=== PATIENT | female | born 1995 | race American Indian/Alaskan Native ===

== ENCOUNTER 2017-04-09 07:08 | Inpatient (IN) | payer MEDICAID ==
[2017-04-09] MEDS ORDERED: PITOCin/NS 20 UNIT/1000ML DRIP 20,000 MILLIUNITS/1,000 ML BAG IV ONE (08:14)
[2017-04-09] MEDS ORDERED: LACTATED RINGERS 1,000 ML ONE (08:14)
[2017-04-09] MEDS ORDERED: POLYCILLIN/NS 2 GM/100 ML 2 GM/100 ML BAG IV ONE ×2 (08:15→09:30)
--- NOTE | 2017-04-09 08:35 | History and Physical Report ---
History of Present Illness Date of examination: 04/09/17 Date of admission: 04/09/17 07:37 Chief complaint: C/O active labor History of present illness: 21 y/o now 37.1 weeks in active labor. care at [facility] assembly hand since 11 weeks gestation. Hx of Gestational diabetes, on diet. GBS negative. No HIV done will order rapid HIV test. 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 Family/Genetic History: heart disease Social history: no significant social history - Obstetrical History Expected Date of Delivery: 04/29/17 Actual Gestation: 37 Week(s) 1 Day(s) : 3 Para: 2 Hx # Term Pregnancies: 1 Number of Pregnancies: 1 Number of Living Children: 2 Medications and Allergies Allergies Allergy/AdvReac Type Severity Reaction Status Date / Time adhesive tape Allergy Rash Unverified 05/28/15 09:57 latex Allergy Rash Unverified 05/28/15 09:57 Latex, Natural Rubber AdvReac Itching Verified 04/26/15 11:54 Home Medications Medication Instructions Recorded Confirmed Last Taken Type HYDROcodone/APAP 5-325 [[place] 1 each PO Q6HR PRN #20 tablet 04/26/15 Unknown Rx 5-325 mg TAB] Ibuprofen [Motrin 800 MG tab] 800 mg PO TID PRN #30 tablet 04/26/15 Unknown Rx Fluconazole [Diflucan TAB] 150 mg PO QDAY #2 tablet 08/29/15 Unknown Rx Active Meds: Active Medications Ephedrine Sulfate (Ephedrine Sulfate) 10 mg IV Q2M PRN PRN Reason: Hypotension Stop: 04/09/17 08:22 Fentanyl (Sublimaze) 100 mcg IV Q2H PRN PRN Reason: Labor Pain Ampicillin Sodium (Polycillin/Ns 1 Gm/50 Ml) 1 gm in 50 mls @ 100 mls/hr IV Q4HR CALIN PRN Reason: Protocol Ampicillin Sodium (Polycillin/Ns 2 Gm/100 Ml) 2 gm in 100 mls @ 100 mls/hr IV ONCE ONE PRN Reason: Protocol Stop: 04/09/17 09:16 Lactated Ringer's (Lactated Ringers) 1,000 mls @ 125 mls/hr IV DIRECT CLAIN Oxytocin/Sodium Chloride (Pitocin/Ns 20 Unit/1000ml Drip) 20 units in 1,000 mls @ 125 mls/hr IV DIRECT CALIN Oxytocin/Sodium Chloride (Pitocin/Ns 30 Unit/500ml) 30 units in 500 mls @ 1 mls /hr IV TITR CALIN; 1 MILLIUNITS/MIN PRN Reason: Protocol Oxytocin/Sodium Chloride (Pitocin/Ns 30 Unit/500ml) 30 units in 500 mls @ 2 mls /hr IV TITR CALIN PRN Reason: Protocol Lidocaine (Xylocaine 2%) 20 ml INFILTRATI ONCE ONE Stop: 04/09/17 08:18 Mineral Oil (Mineral Oil) 30 ml PO QHS PRN PRN Reason: Constipation Terbutaline Sulfate (Brethine) 0.25 mg SUB-Q ONCE PRN PRN Reason: Hyperstimulation/Hypertonicity Stop: 04/09/17 08:18 Terbutaline Sulfate (Brethine) 0.25 mg IVP ONCE PRN PRN Reason: Hyperstimulation/Hypertonicity Stop: 04/09/17 08:18 Review of Systems All systems: negative - Vital Signs Vital signs: Vital Signs Pulse BP 67 128/73 04/09/17 07:28 04/09/17 07:28 Temp Pulse Resp BP Pulse Ox 67 128/73 04/09/17 07:28 04/09/17 07:28 - Physical Exam Breasts: Positive: deferred Cardiovascular: Regular rate Abdomen: Positive: normal appearance Vagina: Positive: normal moisture Uterus: Positive: enlarged Anus/Rectum: Positive: normal perianal skin Extremities: Positive: normal Deep Tendon Reflex Grade: Normal +2 - Obstetrical FHR: category 1 Uterine Contraction Monitor Mode: External Cervical Dilatation: 8 (intact) Cervical Effacement Percentage: 80 station: -1 Uterine Contraction Pattern: Regular Uterine Contraction Intensity: Moderate Results All other labs normal. Assessment and Plan A: Active labor at 37 weeks P: Expect
[2017-04-09 08:53] LABS: Hematocrit 39.7 % (30.3-42.9); Hemoglobin 12.7 gm/dl (10.1-14.3); Mean Corpuscular HGB Conc 32 % (30-34); Mean Corpuscular Volume 75 fl (79-97); Red Blood Count 5.26 M/mm3 (3.65-5.03); Red Cell Distribution Width 16.4 % (13.2-15.2); White Blood Count 8.4 K/mm3 (4.5-11.0)
[2017-04-09] MEDS ORDERED: PITOCin/NS 30 UNIT/500ML 30 UNITS/500 ML BAG IV SCH ×2 (09:00)
[2017-04-09] MEDS ORDERED: PITOCin/NS 20 UNIT/1000ML DRIP 20 UNITS/1,000 ML BAG IV SCH (09:00)
[2017-04-09] MEDS ORDERED: LACTATED RINGERS 1,000 ML IV SCH (09:00)
[2017-04-09 09:07] LABS: Mean Corpuscular Hemoglobin 24 pg (28-32)
[2017-04-09] MEDS ORDERED: ePHEDrine SULFATE IV PRN (09:30)
[2017-04-09] MEDS ORDERED: SUBLIMAZE IV PRN (09:30)
[2017-04-09] MEDS ORDERED: BRETHINE SUB-Q PRN (09:30)
[2017-04-09 09:33] LABS: Mean Platelet Volume 11.5 fl (6-12); Platelet Count 190 K/mm3 (140-440)
[2017-04-09] MEDS ORDERED: XYLOCAINE 2% INFILTRATI ONE (10:00)
[2017-04-09] MEDS ORDERED: MINERAL OIL PO PRN (10:00)
[2017-04-09] MEDS ORDERED: BRETHINE IVP PRN (10:00)
[2017-04-09] MEDS ORDERED: NORCO 5/325 PO PRN (10:30)
[2017-04-09] MEDS ORDERED: LANSINOH TP PRN (10:30)
[2017-04-09] MEDS ORDERED: BENADRYL PO PRN (10:30)
[2017-04-09] MEDS ORDERED: TYLENOL PO PRN (10:30)
[2017-04-09] MEDS ORDERED: PHENERGAN PO PRN (10:30)
--- NOTE | 2017-04-09 10:36 | Procedure Note ---
OB Delivery Note - Delivery Date of Delivery: 04/09/17 Surgeon: RITA GRIMES Estimated blood loss: <100cc - Vaginal Delivery presentation: vertex Delivery position: OA Intrapartum events: none Delivery induction: none Delivery augmentation: rupture of membranes Delivery monitor: external FHT, external uterine Route of delivery: Delivery placenta: spontaneous Delivery cord: 3 umbilical vessels Episiotomy: none Delivery laceration: none Anesthesia: intravenous Delivery comments: of a viable male 5# 10 on 04/09/2017 @ 1017 over intact perineum. 9/ 9. PLacenta delivered 3VCI. Mother and baby doing well. - Infant A at 1 minute: 9 at 5 minutes: 9 Gender: Male (5# 10 oz)
[2017-04-09] MEDS ORDERED: SODIUM CHLORIDE FLUSH SYRINGE 10 ML IV PRN (11:00)
[2017-04-09 11:40] LABS: HIV-1 Antigen p24 Non React (Non React); HIVR-1/2 Ab Non React (Non React)
[2017-04-09] MEDS ORDERED: POLYCILLIN/NS 1 GM/50 ML 1 GM/50 ML BAG IV SCH (12:23)
[2017-04-09] MEDS: MOTRIN PO SCH ×2 (17:36→23:53)
[2017-04-10 00:18] LABS: Hematocrit 34.7 % (30.3-42.9); Hemoglobin 11.2 gm/dl (10.1-14.3)
[2017-04-10] MEDS: MOTRIN PO SCH ×2 (05:32→13:17)
--- NOTE | 2017-04-10 09:24 | Progress Note ---
Assessment and Plan A: PPD 1 VSS P: Routine care D/C today Plan is for BTL Subjective - Subjective Date of service: 04/10/17 Principal diagnosis: PPD1 Interval history: 21 yo @ 37.1 delivered on 04/09/2017 @ 1017. GDM diet controlled. GBS negative Patient reports: appetite normal, voiding normally, pain well controlled, ambulating normally : doing well Objective - Vital Signs Latest vital signs: Vital Signs Temp Pulse Pulse Resp BP BP 04/10/17 08:54 98 F 88 20 110/67 04/10/17 05:32 18 04/10/17 01:19 98.5 F 81 20 101/55 04/09/17 23:53 18 04/09/17 20:00 97.7 F 76 18 123/75 04/09/17 17:18 98.1 F 80 16 123/69 04/09/17 14:54 20 04/09/17 12:00 98.4 F 66 18 123/17 04/09/17 11:30 97.5 F L 64 20 130/84 04/09/17 11:09 60 125/87 04/09/17 10:33 67 124/80 04/09/17 10:27 67 126/78 04/09/17 10:03 71 149/79 04/09/17 09:48 70 139/87 04/09/17 09:33 59 L 121/79 Intake and Output 04/09/17 04/10/17 04/10/17 22:59 06:59 14:59 Intake Total 240 360 240 Output Total 600 Balance -360 360 240 Intake: Oral 240 240 Intake, Free Water 360 Output: Urine 600 Void 600 Other: Total, Intake Amount 240 240 Total, Output Amount 600 # Voids Void 1 1 - Exam Cardiovascular: Present: Regular rate Lungs: Present: Normal air movement Vulva: both: normal (scant lochia) Uterus: Present: fundal height below umbilicus Deep Tendon Reflex Grade: Normal +2 Incision: Present: normal - Allied health notes Allied health notes reviewed: nursing
--- NOTE | 2017-04-10 09:26 | Discharge Summary ---
Providers - Providers Date of Admission: 04/09/17 07:37 Date of discharge: 04/10/17 Attending physician: JOSÉ LUIS SPENCE MD Primary care physician: JOSÉ LUIS SPENCE MD Hospitalization Reason for admission: active labor Delivery: Laceration: none Other procedures: none complications: none Discharge diagnosis: IUP at term delivered baby: male Hospital course: uneventful Condition at discharge: Good Disposition: DC-01 TO HOME OR SELFCARE Plan - Provider Discharge Summary Activity: routine, no sex for 6 weeks, no heavy lifting 4 weeks, no strenuous exercise Diet: routine Instructions: routine Additional instructions: [] Smoking cessation referral if applicable(refer to patient education folder for contact #) [] Refer to [facility] Booklet Call your doctor immediately for: * Fever > 100.5 * Heavy vaginal bleeding ( >1 pad per hour) * Severe persistent headache * Shortness of breath * Reddened, hot, painful area to leg or breast * Drainage or odor from incision. * Keep incision clean and dry at all times and follow doctor's instructions regarding bathing/showering - Follow up plan Follow up: [facility] [Provider Group] - 6 Weeks
[2017-04-10 18:17] VITALS: BP 125/76
== END 2017-04-10 18:00 | disposition home or self-care (01) | DRG 775 ==
LOC: TRG 07:08 → LD 07:37 → OB 11:47
PROVIDERS: ADMIT Obstetrics & Gynecology; ATTEND Obstetrics & Gynecology
PROC: 10E0XZZ Delivery of Products of Conception, External Approach (ICD-10-PCS; principal; 2017-04-09)
DX: O24.420 Gestational diabetes mellitus in childbirth, diet controlled (principal); O99.62 Diseases of the digestive system complicating childbirth; K21.9 Gastro-esophageal reflux disease without esophagitis; Z37.0 Single live birth; Z3A.37 37 weeks gestation of pregnancy; Z91.048 Other nonmedicinal substance allergy status; Z91.040 Latex allergy status
CPT/HCPCS: 36415; 85014; 85018; 85027; 86850; 86900; 86901; 87806; 99211; A6250; G0463; J0290; J2590; J3010; J7120

== ENCOUNTER 2017-08-31 21:18 | Emergency (ER) | payer MEDICAID ==
[2017-08-31 21:49] LABS: Basophils % (Auto) 0.9 % (0.0-1.8); Eosinophils % (Auto) 4.8 % (0.0-4.3); Hematocrit 40.3 % (30.3-42.9); Hemoglobin 13.2 gm/dl (10.1-14.3); Mean Corpuscular HGB Conc 33 % (30-34); Mean Corpuscular Hemoglobin 27 pg (28-32); Mean Corpuscular Volume 82 fl (79-97); Platelet Count 224 K/mm3 (140-440); Red Blood Count 4.93 M/mm3 (3.65-5.03); Red Cell Distribution Width 14.6 % (13.2-15.2)
[2017-08-31 22:14] LABS: Anion Gap 17 mmol/L; BUN/Creatinine Ratio 17; Blood Urea Nitrogen 10 mg/dL (7-17); Carbon Dioxide 25 mmol/L (22-30); Chloride 103.6 mmol/L (98-107); Glucose 87 mg/dL (65-100); Potassium 3.6 mmol/L (3.6-5.0); Sodium 142 mmol/L (137-145)
[2017-09-01 00:24] LABS: Bilirubin,Urine NEG (Negative); Blood,Urine LG (Negative); Ketones,Urine NEG (Negative); Leukocyte Esterase,Urine TR (Negative); Mucus,Urine 2+ /HPF; Nitrite,Urine NEG (Negative)
[2017-09-01 00:32] LABS: RBC,Urine > 182.0 /HPF (0.0-6.0)
--- NOTE | 2017-09-01 00:58 | XRay Report ---
FINAL REPORT PROCEDURE: XR CHEST ROUTINE 2V TECHNIQUE: PA and lateral chest radiographs were obtained. CPT 15690 HISTORY: Shortness of breath COMPARISON: No prior studies are available for comparison. FINDINGS: Heart: Normal. Mediastinum/Vessels: Normal. Lungs/Pleural space: Normal. Bony thorax: No acute osseous abnormality. Other: IMPRESSION: Negative examination.
--- NOTE | 2017-09-01 01:41 | Emergency Department Report ---
HPI - General Chief Complaint: Upper Respiratory Infection Time Seen by Provider: 09/01/17 00:50 - HPI HPI: Patient is a 21-year-old female presents to ED complaining of cough and congestion 3 days. Patient states she started having this intermittent yellowish productive cough that started 3 days ago. Patient states to more she coughs the prolonged coughing makes her chest hurts when coughing. She denies being on any medications. Or taking any medications currently. Patient denies fevers/chills/nausea/vomiting/chest pain/shortness of breath/ dizziness or headache ED Past Medical Hx - Past Medical History Hx Hypertension: No Hx CVA: No Hx Heart Attack/AMI: No Hx Congestive Heart Failure: No Hx Diabetes: No Hx Deep Vein Thrombosis: No Hx Pulmonary Embolism: No Hx GERD: Yes Hx Liver Disease: No Hx Renal Disease: No Hx Sickle Cell Disease: No Hx Arthritis: No Hx Headaches / Migraines: Yes Hx Seizures: No Hx Kidney Stones: No Hx Psychiatric Treatment: No Hx Asthma: Yes Hx COPD: No Hx Tuberculosis: No Hx Dementia: No Hx HIV: No Additional medical history: pneumonia - Surgical History Hx Coronary Stent: No Hx Open Heart Surgery: No Hx Pacemaker: No Hx Internal Defibrillator: No Hx Cholecystectomy: No Hx Appendectomy: No Hx Breast Surgery: No Additional Surgical History: OVARIAN CYST REMONAL - Social History Smoking Status: Never Smoker Substance Use Type: None - Medications Home Medications: Home Medications Medication Instructions Recorded Confirmed Last Taken Type ALBUTEROL Inhaler [ProAir HFA 1 puff IH PRN #1 pump 09/01/17 Unknown Rx Inhaler] Ciprofloxacin HCl [Ciprofloxacin 500 mg PO Q12HR #14 tab 09/01/17 Unknown Rx TAB] guaiFENesin [Robitussin] 200 mg PO Q6HR #20 tablet 09/01/17 Unknown Rx ED Review of Systems ROS: Stated complaint: CP/SOB Other details as noted in HPI Constitutional: denies: chills, fever Eyes: denies: eye pain, eye discharge, vision change ENT: congestion. denies: ear pain, throat pain Respiratory: cough. denies: shortness of breath, wheezing Cardiovascular: denies: chest pain, palpitations Endocrine: no symptoms reported Gastrointestinal: denies: abdominal pain, nausea, vomiting, diarrhea, constipation, hematemesis Genitourinary: denies: urgency, dysuria, discharge Musculoskeletal: denies: back pain, joint swelling, arthralgia Skin: denies: rash, lesions Neurological: denies: headache, weakness, paresthesias Psychiatric: denies: anxiety, depression Hematological/Lymphatic: denies: easy bleeding, easy bruising Physical Exam - Physical Exam Vital Signs: Vital Signs 08/31/17 21:23 Temperature 98.8 F Pulse Rate 85 Respiratory 18 Rate Blood Pressure 114/79 O2 Sat by Pulse 99 Oximetry Physical Exam: GENERAL: Alert and oriented x3, no apparent distress, Normal Gait, atraumatic. HEAD: Head is normocephalic and a-traumatic. EYES: Extra ocular muscles are intact. Pupils are equal, round, and reactive to light and accommodation. EARS: symetrical, atraumatic, non tender, ear canal clear and moderate cerumen, tympanic membrance non inflamed. gross auditory nml bilaterally. NOSE: Nose symetrical, Nontender,Nares appeared normal. MOUTH:Mouth is well hydrated and without lesions. Tonsils nonerythematous or swollen, Uvula midline, Tongue not elevated. Mucous membranes are moist. Posterior pharynx clear, no exudate or lesions. Patent airways. NECK: Supple. Non edematous, No lymphadenopathy or thyromegaly. LUNGS: Symetrical with respiration, No wheezing, no rales or crackles, CTAB. HEART: S1, S2 present, regular rate and rhythm without murmur, no rubs, no gallops. Non tender to palpation. BACK: Full range of motion, no spinal tenderness, nontender to palpation. SKIN: Warm and dry, No lesions, No ulceration or induration present. ED Course Vital Signs 08/31/17 21:23 Temperature 98.8 F Pulse Rate 85 Respiratory 18 Rate Blood Pressure 114/79 O2 Sat by Pulse 99 Oximetry ED Medical Decision Making - Lab Data Result diagrams: 08/31/17 21:33 08/31/17 21:33 Laboratory Last Values WBC 5.0 K/mm3 (4.5-11.0) 08/31/17 21:33 RBC 4.93 M/mm3 (3.65-5.03) 08/31/17 21:33 Hgb 13.2 gm/dl (10.1-14.3) 08/31/17 21:33 Hct 40.3 % (30.3-42.9) 08/31/17 21:33 MCV 82 fl (79-97) 08/31/17 21:33 MCH 27 pg (28-32) L 08/31/17 21:33 MCHC 33 % (30-34) 08/31/17 21:33 RDW 14.6 % (13.2-15.2) 08/31/17 21:33 Plt Count 224 K/mm3 (140-440) 08/31/17 21:33 Lymph % (Auto) 45.4 % (13.4-35.0) H 08/31/17 21:33 [place] % (Auto) 9.7 % (0.0-7.3) H 08/31/17 21:33 Eos % (Auto) 4.8 % (0.0-4.3) H 08/31/17 21:33 Baso % (Auto) 0.9 % (0.0-1.8) 08/31/17 21:33 Lymph # 2.3 K/mm3 (1.2-5.4) 08/31/17 21:33 [place] # 0.5 K/mm3 (0.0-0.8) 08/31/17 21:33 Eos # 0.2 K/mm3 (0.0-0.4) 08/31/17 21:33 Baso # 0.0 K/mm3 (0.0-0.1) 08/31/17 21:33 Seg Neutrophils % 39.2 % (40.0-70.0) L 08/31/17 21:33 Seg Neutrophils # 2.0 K/mm3 (1.8-7.7) 08/31/17 21:33 Sodium 142 mmol/L (137-145) 08/31/17 21:33 Potassium 3.6 mmol/L (3.6-5.0) 08/31/17 21:33 Chloride 103.6 mmol/L (98-107) 08/31/17 21:33 Carbon Dioxide 25 mmol/L (22-30) 08/31/17 21:33 Anion Gap 17 mmol/L 08/31/17 21:33 BUN 10 mg/dL (7-17) 08/31/17 21:33 Creatinine 0.6 mg/dL (0.7-1.2) L 08/31/17 21:33 Estimated GFR > 60 ml/min 08/31/17 21:33 BUN/Creatinine Ratio 17 % 08/31/17 21:33 Glucose 87 mg/dL (65-100) 08/31/17 21:33 Calcium 9.0 mg/dL (8.4-10.2) 08/31/17 21:33 Troponin T < 0.010 ng/mL (0.00-0.029) 08/31/17 21:33 Urine Color Yellow (Yellow) 08/31/17 23:32 Urine Turbidity Clear (Clear) 08/31/17 23:32 Urine pH 5.0 (5.0-7.0) 08/31/17 23:32 Ur Specific [place] 1.027 (1.003-1.030) 08/31/17 23: Urine Protein 30 mg/dl mg/dL (Negative) 08/31/17 23:32 Urine Glucose (UA) Neg mg/dL (Negative) 08/31/17 23:32 Urine Ketones Neg mg/dL (Negative) 08/31/17 23:32 Urine Blood Lg (Negative) 08/31/17 23:32 Urine Nitrite Neg (Negative) 08/31/17 23:32 Urine Bilirubin Neg (Negative) 08/31/17 23:32 Urine Urobilinogen 2.0 mg/dL (<2.0) 08/31/17 23:32 Ur Leukocyte Esterase Tr (Negative) 08/31/17 23:32 Urine WBC (Auto) 12.0 /HPF (0.0-6.0) H 08/31/17 23:32 Urine RBC (Auto) > 182.0 /HPF (0.0-6.0) 08/31/17 23:32 U Epithel Cells (Auto) 14.0 /HPF (0-13.0) H 08/31/17 23:32 Calcium Oxalate Crystal 1+ 08/31/17 23:32 Urine Mucus 2+ /HPF 08/31/17 23:32 Urine HCG, Qual Negative (Negative) 08/31/17 23:32 - EKG Data Interpretation: normal EKG - Radiology Data Radiology results: image reviewed interpreted by me: No signs of acute pulmonary disease. - Medical Decision Making 21-year-old female presents with bronchitis. Chest x-ray, CBC, CMP, urinalysis and tests already. Labs within normal limits. Urinalysis positive for some trace leukocytes, white blood cells and calcium oxalate. This urine results of this suggestive of mild UTI and previous kidney stone. I discussed his findings with the patient. I discussed the patient to follow up with primary care physician. I discussed the patient did take medication as prescribed as needed for cough Patient's vital signs are stable she is in no acute or respiratory distress. She is resting comfortably in the room. Patient has no neuro deficits and states she will follow instructions as given. Critical care attestation.: If time is entered above; I have spent that time in minutes in the direct care of this critically ill patient, excluding procedure time. ED Disposition Clinical Impression: Bronchitis, Cold, Cystitis Disposition: - TO HOME OR SELFCARE Is pt being admited?: No Does the pt Need Aspirin: No Condition: Stable Instructions: Chronic Bronchitis (ED), Urinary Tract Infection in Women (ED), Upper Respiratory Infection (ED) Additional Instructions: If you have any worsening symptoms this return to ED Follow-up with primary care doctor. Prescriptions: ALBUTEROL Inhaler [ProAir HFA Inhaler] 1 puff IH PRN #1 pump Ciprofloxacin HCl [Ciprofloxacin TAB] 500 mg PO Q12HR #14 tab guaiFENesin [Robitussin] 200 mg PO Q6HR #20 tablet Referrals: PRIMARY CARE, [Primary Care Provider] - 3-5 Days [facility] [Outside] - 3-5 Days [facility] [Outside] - 3-5 Days Forms: Work/School Release Form(ED) Time of Disposition: 01:50
[2017-09-01 02:12] VITALS: BP 119/72
== END 2017-09-01 02:12 | disposition home or self-care (01) ==
LOC: ED 21:18
DX: J40 Bronchitis, not specified as acute or chronic (principal); N30.90 Cystitis, unspecified without hematuria; J00 Acute nasopharyngitis [common cold]; K21.9 Gastro-esophageal reflux disease without esophagitis; G43.909 Migraine, unspecified, not intractable, without status migrainosus; J45.909 Unspecified asthma, uncomplicated
CPT/HCPCS: 36415; 71020; 80048; 81001; 81025; 84484; 85025; 93005; 93010

== ENCOUNTER 2018-07-22 09:53 | Inpatient (IN) | payer MEDICAID ==
[2018-07-22] MEDS ORDERED: NARCAN 0.4 MG/1 ML IV PRN (11:28)
[2018-07-22] MEDS ORDERED: SUBLIMAZE IV PRN (11:28)
[2018-07-22] MEDS ORDERED: ZOFRAN IV PRN (11:28)
[2018-07-22] MEDS ORDERED: BRETHINE IVP PRN (11:28)
[2018-07-22] MEDS ORDERED: XYLOCAINE 2% INFILTRATI ONE (11:28)
[2018-07-22] MEDS ORDERED: BRETHINE SUB-Q PRN (11:28)
[2018-07-22] MEDS ORDERED: MINERAL OIL PO PRN (11:28)
--- NOTE | 2018-07-22 11:35 | History and Physical Report ---
History of Present Illness Date of examination: 07/22/18 Date of admission: 07/22/18 11:20 Chief complaint: Intense Labor Pains History of present illness: Early entry to care; course complicated by GDM A1, co-managed with [facility]. Past History Past Medical History: diabetes (GDM a1) Past Surgical History: DEV TECHNICAL MGR/uterine surgery (Diagnostic Lap: 2014), other ( Esophagogastroduodenoscopy) DEV TECHNICAL MGR History: herpes Family/Genetic History: heart disease (father ) - Obstetrical History Expected Date of Delivery: 08/12/18 Actual Gestation: 37 Week(s) 0 Day(s) : 4 Para: 3 Hx # Term Pregnancies: 2 Number of Pregnancies: 1 Number of Living Children: 3 #1 Infant Gender: Male year: 2,010 Birthweight: 2.126 kg Method of Delivery: Vaginal Gestational age at delivery: 36 Complications: other (Induced for preeclampsia) #2 Gender: Male year: 2,012 Birthweight: 2.722 kg Method of Delivery: Vaginal Gestational age at delivery: 38 #3 Gender: Male year: 2,017 Birthweight: 2.495 kg Method of Delivery: Vaginal Gestational age at delivery: 37 Complications: other (GDM A1) Medications and Allergies Allergies Allergy/AdvReac Type Severity Reaction Status Date / Time adhesive tape Allergy Rash Unverified 05/28/15 09:57 latex Allergy Rash Unverified 05/28/15 09:57 Latex, Natural Rubber AdvReac Itching Verified 04/26/15 11:54 Home Medications Medication Instructions Recorded Confirmed Last Taken Type ALBUTEROL Inhaler (OR & NICU) 1 puff IH PRN #1 pump 09/01/17 Unknown Rx [ProAir HFA Inhaler] Ciprofloxacin HCl [Ciprofloxacin 500 mg PO Q12HR #14 tab 09/01/17 Unknown Rx TAB] guaiFENesin [Robitussin] 200 mg PO Q6HR #20 tablet 09/01/17 Unknown Rx Review of Systems All systems: negative - Vital Signs Vital signs: Vital Signs Pulse BP Pulse Ox 92 H 132/83 98 07/22/18 10:31 07/22/18 10:31 07/22/18 10:31 Temp Pulse Resp BP Pulse Ox 97 H 132/83 100 07/22/18 11:28 07/22/18 10:31 07/22/18 11:28 - Physical Exam Breasts: Positive: normal Cardiovascular: Regular rate Lungs: Positive: Clear to auscultation, Normal air movement Abdomen: Positive: normal appearance, soft, normal bowel sounds Genitourinary (Female): Positive: normal external genitalia, normal perenium Anus/Rectum: Positive: normal perianal skin, heme negative Extremities: Positive: normal - Obstetrical FHR: category 1 Uterine Contraction Monitor Mode: External Cervical Dilatation: 9 (AROM of a moderate amount of clear fluid) Cervical Effacement Percentage: 100 station: 0 Uterine Contraction Pattern: Regular Uterine Tone Measurement Phase: Resting Uterine Contraction Intensity: Strong/Firm Results All other labs normal. Assessment and Plan A: IUP @ 37 Weeks Category I Tracing Active labor GDM A1 GBS Negative P: Admit to L&D per Routine Orders Anticipate
[2018-07-22] MEDS ORDERED: PHENERGAN PR PRN (11:56)
[2018-07-22] MEDS ORDERED: DULCOLAX PR PRN (11:56)
[2018-07-22] MEDS ORDERED: NORCO 5/325 PO PRN (11:56)
[2018-07-22] MEDS ORDERED: BENADRYL PO PRN (11:56)
[2018-07-22] MEDS ORDERED: MILK OF MAGNESIA PO PRN (11:56)
[2018-07-22] MEDS ORDERED: LACTATED RINGERS 1,000 ML IV SCH (12:00)
[2018-07-22] MEDS ORDERED: SODIUM CHLORIDE FLUSH SYRINGE 10 ML IV NR (12:00)
[2018-07-22] MEDS ORDERED: PITOCin/NS 20 UNIT/1000ML DRIP 20 UNITS/1,000 ML BAG IV SCH (12:00)
--- NOTE | 2018-07-22 12:07 | Procedure Note ---
OB Delivery Note - Delivery Date of Delivery: 07/22/18 (1144) Surgeon: LILIBETH ROSA Estimated blood loss: 200cc - Vaginal Delivery presentation: vertex Delivery position: OA Delivery induction: none Delivery augmentation: rupture of membranes Delivery monitor: external FHT, external uterine Route of delivery: Delivery placenta: spontaneous Delivery cord: 3 umbilical vessels Episiotomy: none Delivery laceration: none Anesthesia: none Delivery comments: of a live 5'8 male infant over a intact perineum without pain control with Apgars of 9 and 9 at 1144 on 07/22/2018. Infant directly to maternal abd/chest , skin to skin contact. Spontaneous delivery of placenta complete and intact with [place] side presenting at 1146. Fundus is firm and midline located 4 below the U; Lochia is scant. Delayed cord clamping and cutting; Cord cut by the Father of the baby. Placenta discarded. - A at 1 minute: 9 at 5 minutes: 9 Gender: Male (5'8)
[2018-07-22 14:51] LABS: Hematocrit 42.3 % (30.3-42.9); Hemoglobin 13.5 gm/dl (10.1-14.3); Mean Corpuscular HGB Conc 32 % (30-34); Mean Corpuscular Hemoglobin 25 pg (28-32); Mean Corpuscular Volume 77 fl (79-97); Platelet Count 220 K/mm3 (140-440); Red Blood Count 5.46 M/mm3 (3.65-5.03); Red Cell Distribution Width 16.3 % (13.2-15.2)
[2018-07-22] MEDS: MOTRIN PO SCH (18:30)
[2018-07-23] MEDS: MOTRIN PO SCH ×4 (00:05→18:05)
[2018-07-23 02:13] LABS: Hematocrit 35.9 % (30.3-42.9); Hemoglobin 11.7 gm/dl (10.1-14.3)
--- NOTE | 2018-07-23 08:51 | Progress Note ---
Assessment and Plan - Patient Problems (1) Status post normal vaginal delivery Current Visit: Yes Status: Acute Plan to address problem: PPD 1 - stable Continue routine orders Anticipate discharge in 24-48 hours (2) Gestational diabetes mellitus in , diet controlled Current Visit: Yes Status: Acute Qualifiers: Trimester: third trimester Qualified Code(s): O24.410 - Gestational diabetes mellitus in , diet controlled Plan to address problem: Blood glucose: 108, 144, 188 Patient not adhering to ADA diet (eating [employer]) Consulted Dr. Kelley about sliding scale insulin Subjective - Subjective Date of service: 07/23/18 Principal diagnosis: PPD #1; s/p Patient reports: appetite normal, voiding normally, pain well controlled, ambulating normally [place]: doing well, bottle feeding Objective - Vital Signs Latest vital signs: Vital Signs Temp Pulse Resp BP BP Pulse Ox 07/23/18 07:44 98.4 F 108 H 20 113/72 97 07/23/18 01:03 98.0 F 96 H 20 113/74 100 07/22/18 20:30 89 20 113/79 99 07/22/18 17:03 98.9 F 100 H 106/69 96 07/22/18 14:10 97.5 F L 94 H 20 117/70 100 07/22/18 13:09 82 119/81 07/22/18 12:54 73 112/70 07/22/18 12:39 72 114/70 07/22/18 12:24 78 115/69 07/22/18 12:11 86 117/70 07/22/18 11:28 97 H 100 07/22/18 11:23 94 H 100 07/22/18 11:01 104 H 100 07/22/18 10:56 94 H 98 07/22/18 10:55 93 H 89 07/22/18 10:51 95 H 98 07/22/18 10:47 97 H 92 07/22/18 10:46 102 H 99 07/22/18 10:41 90 97 07/22/18 10:36 103 H 98 07/22/18 10:31 92 H 132/83 98 Intake and Output 07/22/18 07/23/18 07/23/18 23:59 07:59 15:59 Intake Total 240 240 Output Total 600 Balance -360 240 Intake: Oral 240 240 Output: Urine 600 Void 600 Other: Total, Intake Amount 240 240 Total, Output Amount 600 # Voids Void 1 1 - Exam Abdomen: Present: normal appearance, soft Vulva: both: normal Uterus: Present: normal, firm, fundal height at umbilicus Extremities: Present: normal Comments: moderate lochia - Labs Labs: Abnormal lab results 07/22/18 07/22/18 07/22/18 Range/Units 11:38 13:55 22:03 RBC 5.46 H (3.65-5.03) M/mm3 MCV 77 L (79-97) fl MCH 25 L (28-32) pg RDW 16.3 H (13.2-15.2) % POC Glucose 108 H 144 H (70-105) 07/23/18 Range/Units 06:59 RBC (3.65-5.03) M/mm3 MCV (79-97) fl MCH (28-32) pg RDW (13.2-15.2) % POC Glucose 188 H (70-105)
[2018-07-23] MEDS ORDERED: D50W (25GM) Syringe IV PRN (09:30)
[2018-07-23] MEDS: HumuLIN R SUB-Q SCH ×3 (12:06→22:10)
[2018-07-24] MEDS: MOTRIN PO SCH ×3 (00:07→12:57)
[2018-07-24] MEDS: HumuLIN R SUB-Q SCH (06:47)
--- NOTE | 2018-07-24 10:06 | Progress Note ---
Assessment and Plan 1) Status post normal vaginal delivery Current Visit: Yes Status: Acute Plan to address problem: PPD 2 - stable Continue routine orders Anticipate discharge today Desire Depo Provera prior to discharge Plan PP Steralization in 6 weeks (2) Gestational diabetes mellitus in , diet controlled Current Visit: Yes Status: Acute Qualifiers: Trimester: third trimester Qualified Code(s): O24.410 - Gestational diabetes mellitus in , diet controlled Plan to address problem: Blood glucose: 92, 77,117 Subjective - Subjective Principal diagnosis: PPD #2; s/p Patient reports: appetite normal, voiding normally, pain well controlled, flatus , ambulating normally [place]: doing well, bottle feeding Objective - Vital Signs Latest vital signs: Vital Signs Temp Pulse Resp BP BP Pulse Ox 07/24/18 07:07 98.1 F 91 H 18 111/63 07/24/18 06:01 16 07/24/18 00:07 16 07/24/18 00:02 98.3 F 94 H 18 106/70 99 07/23/18 19:05 16 07/23/18 16:17 98.2 F 98 H 20 104/67 97 07/23/18 11:51 98.3 F 89 16 109/72 98 Intake and Output 07/23/18 07/24/18 07/24/18 23:59 07:59 15:59 Intake Total 240 120 Balance 240 120 Intake: Oral 240 120 Other: Total, Intake Amount 240 120 # Voids Void 1 - Exam Breasts: Present: normal Cardiovascular: Present: Regular rate, Normal S1, Normal S2, No murmurs Lungs: Present: Clear to auscultation, Normal air movement Abdomen: Present: normal appearance, soft, normal bowel sounds. Absent: distention Vulva: both: normal Uterus: Present: firm, fundal height below umbilicus (-1) Extremities: Present: normal Deep Tendon Reflex Grade: Normal +2 - Labs Labs: Abnormal lab results 07/23/18 Range/Units 22:00 POC Glucose 117 H (70-105)
--- NOTE | 2018-07-24 10:10 | Discharge Summary ---
Providers - Providers Date of Admission: 07/22/18 11:20 Date of discharge: 07/24/18 Attending physician: JESSICA STAFFORD MD Primary care physician: JESSICA STAFFORD MD Hospitalization Reason for admission: active labor, IUP at term Delivery: Procedure details: See delivery note Episiotomy: none Laceration: none Other procedures: none complications: none Discharge diagnosis: IUP at term delivered [place] baby: male Condition at discharge: Good Disposition: DC-01 TO HOME OR SELFCARE Plan - Provider Discharge Summary Activity: routine, no sex for 6 weeks, no heavy lifting 4 weeks, no strenuous exercise Diet: routine Instructions: routine Additional instructions: [] Smoking cessation referral if applicable(refer to patient education folder for contact #) [] Refer to [facility] Booklet Call your doctor immediately for: * Fever > 100.5 * Heavy vaginal bleeding ( >1 pad per hour) * Severe persistent headache * Shortness of breath * Reddened, hot, painful area to leg or breast * Drainage or odor from incision. * Keep incision clean and dry at all times and follow doctor's instructions regarding bathing/showering - Follow up plan Follow up: JESSICA STAFFORD MD [Primary Care Provider] - 6 Weeks
[2018-07-24] MEDS ORDERED: DEPO-PROVERA (CONTRACEPTION) IM NR (10:30)
[2018-07-24 13:49] VITALS: BP 115/70
== END 2018-07-24 13:20 | disposition home or self-care (01) | DRG 774 ==
LOC: TRG 09:53 → LD 11:20 → OB 14:55
PROVIDERS: ADMIT Obstetrics & Gynecology; ATTEND Obstetrics & Gynecology
PROC: 10E0XZZ Delivery of Products of Conception, External Approach (ICD-10-PCS; principal; 2018-07-22)
DX: O24.420 Gestational diabetes mellitus in childbirth, diet controlled (principal); O98.32 Other infections with a predominantly sexual mode of transmission complicating childbirth; Z3A.37 37 weeks gestation of pregnancy; Z37.0 Single live birth; A60.00 Herpesviral infection of urogenital system, unspecified
CPT/HCPCS: 36415; 82962; 85014; 85018; 85027; 86592; 86850; 86900; 86901; J1815; J2590; J7120

== ENCOUNTER 2019-03-29 22:45 | Emergency (ER) | payer MEDICAID ==
[2019-03-29 23:37] LABS: Basophils % (Auto) 0.5 % (0.0-1.8); Eosinophils # (Auto) 0.1 K/mm3 (0.0-0.4); Eosinophils % (Auto) 1.7 % (0.0-4.3); Hematocrit 41.6 % (30.3-42.9); Hemoglobin 13.8 gm/dl (10.1-14.3); Lymphocytes # (Auto) 3.5 K/mm3 (1.2-5.4); Mean Corpuscular HGB Conc 33 % (30-34); Mean Corpuscular Volume 78 fl (79-97); Monocytes # (Auto) 0.7 K/mm3 (0.0-0.8); Monocytes % (Auto) 9.9 % (0.0-7.3); Platelet Count 260 K/mm3 (140-440); Red Blood Count 5.33 M/mm3 (3.65-5.03); Red Cell Distribution Width 15.1 % (13.2-15.2)
[2019-03-29 23:50] LABS: BUN/Creatinine Ratio 11; Blood Urea Nitrogen 8 mg/dL (7-17); Calcium 9.2 mg/dL (8.4-10.2); Hemolysis Index 6
[2019-03-30 00:24] LABS: Amorphous Crystals,Urine Few; Bilirubin,Urine NEG (Negative); Blood,Urine SM (Negative); Color,Urine Yellow (Yellow); Mucus,Urine 1+ /HPF; Protein,Urine <15 mg/dL mg/dL (Negative); Urobilinogen,Urine < 2.0 mg/dL (<2.0)
[2019-03-30] MEDS ORDERED: TORADOL IM ONE (01:18)
[2019-03-30] MEDS ORDERED: TYLENOL PO ONE (01:18)
--- NOTE | 2019-03-30 01:19 | Emergency Department Report ---
ED General Adult HPI - General Chief complaint: Abdominal Pain Stated complaint: STOMACH PAIN Time Seen by Provider: 03/30/19 01:11 Source: patient, RN notes reviewed, old records reviewed Mode of arrival: Ambulatory Limitations: No Limitations - History of Present Illness Initial comments: This is a 23-year-old female. The patient is not known to this provider previously. She has a documented history of dysfunctional uterine bleeding. Patient presents to the emergency room today with the complaints of nontraumatic lower abdominal pain. She reports that it feels like her uterus is pablo, the pain is intermittent over the past 3 days, starts in the front, and radiates to the back. The pain increases with certain positions and decreases with lying still. The patient also endorses a headache. The headache is frontal and bitemporal. The headache is present for approximately one day. Headache is not sudden or thunderclap in nature. The headache has not reached maximal intensity within an hour. There is no loss of vision. There is no sore throat. There is no neck pain. This headache is not the most intense headache of her life. -: Gradual Location: head, abdomen Radiation: back Consistency: intermittent Improves with: other Worsens with: other - Related Data Previous Rx's Medication Instructions Recorded Last Taken Type Acetaminophen [Non-Aspirin Extra 500 mg PO Q6HR PRN #30 tablet 03/30/19 Unknown Rx Strength] Ibuprofen [Motrin] 600 mg PO Q8H PRN #30 tablet 03/30/19 Unknown Rx Allergies Allergy/AdvReac Type Severity Reaction Status Date / Time adhesive tape Allergy Rash Verified 11/05/18 17:34 latex Allergy Rash Verified 11/05/18 17:34 Latex, Natural Rubber AdvReac Itching Verified 11/05/18 17:34 shrimp AdvReac Rash Verified 11/14/18 08:59 ED Review of Systems ROS: Stated complaint: STOMACH PAIN Other details as noted in HPI Constitutional: denies: fever, malaise Eyes: denies: eye pain, eye discharge, vision change ENT: denies: throat pain Respiratory: denies: cough Cardiovascular: denies: chest pain Gastrointestinal: abdominal pain Genitourinary: denies: urgency, dysuria, frequency, hematuria, discharge Musculoskeletal: back pain Neurological: headache Psychiatric: anxiety ED Past Medical Hx - Past Medical History Previous Medical History?: Yes Hx Hypertension: No Hx CVA: No Hx Heart Attack/AMI: No Hx Congestive Heart Failure: No Hx Diabetes: No Hx Deep Vein Thrombosis: No Hx Pulmonary Embolism: No Hx GERD: Yes Hx Liver Disease: No Hx Renal Disease: No Hx Sickle Cell Disease: No Hx Arthritis: No Hx Headaches / Migraines: Yes Hx Seizures: No Hx Kidney Stones: No Hx Psychiatric Treatment: No Hx Asthma: Yes (Not treated in "years") Hx COPD: No Hx Tuberculosis: No Hx Dementia: No Hx HIV: No Additional medical history: pneumonia - Surgical History Past Surgical History?: Yes Hx Coronary Stent: No Hx Open Heart Surgery: No Hx Pacemaker: No Hx Internal Defibrillator: No Hx Cholecystectomy: No Hx Appendectomy: No Hx Breast Surgery: No Additional Surgical History: OVARIAN CYST REMONAL, Tubal ligation 11/14/18 - Social History Smoking Status: Never Smoker Substance Use Type: None - Medications Home Medications: Home Medications Medication Instructions Recorded Confirmed Last Taken Type Acetaminophen [Non-Aspirin Extra 500 mg PO Q6HR PRN #30 tablet 03/30/19 Unknown Rx Strength] Ibuprofen [Motrin] 600 mg PO Q8H PRN #30 tablet 03/30/19 Unknown Rx ED Physical Exam - General Limitations: No Limitations General appearance: alert, in no apparent distress - Head Head exam: Present: atraumatic, normocephalic - Eye Eye exam: Present: normal appearance, EOMI. Absent: nystagmus - ENT ENT exam: Present: normal exam, normal orophraynx, mucous membranes moist, normal external ear exam - Neck Neck exam: Present: normal inspection, full ROM. Absent: tenderness, meningismus - Respiratory Respiratory exam: Present: normal lung sounds bilaterally. Absent: respiratory distress - Cardiovascular Cardiovascular Exam: Present: regular rate, normal rhythm, normal heart sounds. Absent: bradycardia, tachycardia, irregular rhythm, systolic murmur, diastolic murmur, rubs, gallop - GI/Abdominal GI/Abdominal exam: Present: soft. Absent: distended, tenderness, guarding, rebound, rigid, pulsatile mass - External exam: Present: normal external exam. Absent: lesions, lacerations Speculum exam: Present: normal speculum exam. Absent: cervical discharge, vaginal bleeding Bi-manual exam: Present: cervical motion tendernes, adnexal tenderness, other (chaperoned by Shakila Pope). Absent: adnexal mass, uterine enlargement - Extremities Exam Extremities exam: Present: normal inspection, full ROM, other (2+ pulses noted in the bilateral upper, lower extremities. Compartments soft. No long bony tenderness. The pelvis is stable.). Absent: pedal edema, joint swelling, calf tenderness - Back Exam Back exam: Present: normal inspection, full ROM. Absent: tenderness, CVA tenderness (R), CVA tenderness (L), paraspinal tenderness, vertebral tenderness - Neurological Exam Neurological exam: Present: alert, oriented X3, normal gait, other (Extraocular movements intact. Tongue midline. No facial droop. Facial sensation intact to light touch in the V1, V2, V3 distribution bilaterally. 5 and 5 strength in 4 extremities.. Sensation is intact to light touch in 4 extremities.). Absent: motor sensory deficit - Psychiatric Psychiatric exam: Present: normal affect, normal mood - Skin Skin exam: Present: warm, dry, intact, normal color. Absent: rash ED Course Vital Signs 03/29/19 03/30/19 03/30/19 23:00 01:18 03:37 Temperature 98.1 F 98.6 F Pulse Rate 98 H 78 Respiratory 16 18 18 Rate Blood Pressure 126/78 Blood Pressure 138/81 [Left] O2 Sat by Pulse 99 98 Oximetry - Reevaluation(s) Reevaluation #1: 03/30/19 01:31 Differential diagnosis, including but not limited to: Primary headache, migraine headache, tension headache, cluster headache, ovarian cyst, , urinary tract infection, endometriosis, pelvic inflammatory disease Assessment and plan: 23-year-old female with 2 complaints Complaint #1, abdominal pain, states it feels like her uterus is pablo. The patient is afebrile with reassuring vital signs. She is quite well appearing. There is no abdominal tenderness whatsoever. Laboratory studies do not suggest or urinary tract infection. We will perform a pelvic examination, pelvic ultrasound, and give her pain medication. Complaint #2, headache. Headache by history does not appear to be an emergent condition. She does not list any red flag signs or symptoms on her history and physical. She has a GCS of 15. She has a nonfocal neurologic examination. We will treat her headache supportively, clinically, sounds like a primary headache disorder. Reevaluation #2: 03/30/19 02:44 Gynecologic examination: Patient has cervical motion tenderness and bilateral adnexal tenderness. Ultrasound interpretation pending. Wet prep negative for trichomoniasis. Reevaluation #3: 03/30/19 03:34 The abdomen is soft on repeat examination. The patient states she feels much better. There is no abdominal tenderness on repeat examination. Ultrasound report reviewed and appreciated. Do not clinically suspect torsion at this time based on the history and physical. Discussed the possibility of pelvic inflammatory disease with the patient. She states she had routine cultures sent by her housing case manager this past week, and was told "all my stuff is negative." The patient states she is not interested in receiving empiric antibiotic therapy for possible PID, and she understands risks of untreated PID including loss of fertility. The patient is currently sterilized secondary to tubal ligation. The patient indicates she is amenable to following up with her outpatient housing case manager for repeat evaluation, and she is amenable to being discharged with pain medication. Vital signs remained stable, we will discharge the patient at this time. Clue cells appreciated on wet prep, patient not complaining about symptoms of BV, therefore, we will not initiate treatment for this. ED Medical Decision Making - Lab Data Result diagrams: 03/29/19 23:19 03/29/19 23:19 Vital Signs 03/29/19 23:00 Temperature 98.1 F Pulse Rate 98 H Respiratory 16 Rate Blood Pressure 126/78 O2 Sat by Pulse 99 Oximetry Lab Results 03/29/19 03/29/19 03/29/19 Range/Units 23:19 23:19 23:19 WBC 6.9 (4.5-11.0) K/mm3 RBC 5.33 H (3.65-5.03) M/mm3 Hgb 13.8 (10.1-14.3) gm/dl Hct 41.6 (30.3-42.9) % MCV 78 L (79-97) fl MCH 26 L (28-32) pg MCHC 33 (30-34) % RDW 15.1 (13.2-15.2) % Plt Count 260 (140-440) K/mm3 Lymph % (Auto) 50.0 H (13.4-35.0) % Parke % (Auto) 9.9 H (0.0-7.3) % Eos % (Auto) 1.7 (0.0-4.3) % Baso % (Auto) 0.5 (0.0-1.8) % Lymph # 3.5 (1.2-5.4) K/mm3 Parke # 0.7 (0.0-0.8) K/mm3 Eos # 0.1 (0.0-0.4) K/mm3 Baso # 0.0 (0.0-0.1) K/mm3 Seg Neutrophils % 37.9 L (40.0-70.0) % Seg Neutrophils # 2.6 (1.8-7.7) K/mm3 Sodium 139 (137-145) mmol/L Potassium 3.9 (3.6-5.0) mmol/L Chloride 102.0 (98-107) mmol/L Carbon Dioxide 23 (22-30) mmol/L Anion Gap 18 mmol/L BUN 8 (7-17) mg/dL Creatinine 0.7 (0.7-1.2) mg/dL Estimated GFR > 60 ml/min BUN/Creatinine Ratio 11 % Glucose 106 H (65-100) mg/dL Calcium 9.2 (8.4-10.2) mg/dL HCG, Qual Negative (Negative) Urine Color (Yellow) Urine Turbidity (Clear) Urine pH (5.0-7.0) Ur Specific Noble (1.003-1.030) Urine Protein (Negative) mg/dL Urine Glucose (UA) (Negative) mg/dL Urine Ketones (Negative) mg/dL Urine Blood (Negative) Urine Nitrite (Negative) Urine Bilirubin (Negative) Urine Urobilinogen (<2.0) mg/dL Ur Leukocyte Esterase (Negative) Urine WBC (Auto) (0.0-6.0) /HPF Urine RBC (Auto) (0.0-6.0) /HPF U Epithel Cells (Auto) (0-13.0) /HPF Amorphous Crystals Urine Mucus /HPF 03/29/19 Range/Units 23:55 WBC (4.5-11.0) K/mm3 RBC (3.65-5.03) M/mm3 Hgb (10.1-14.3) gm/dl Hct (30.3-42.9) % MCV (79-97) fl MCH (28-32) pg MCHC (30-34) % RDW (13.2-15.2) % Plt Count (140-440) K/mm3 Lymph % (Auto) (13.4-35.0) % Parke % (Auto) (0.0-7.3) % Eos % (Auto) (0.0-4.3) % Baso % (Auto) (0.0-1.8) % Lymph # (1.2-5.4) K/mm3 Parke # (0.0-0.8) K/mm3 Eos # (0.0-0.4) K/mm3 Baso # (0.0-0.1) K/mm3 Seg Neutrophils % (40.0-70.0) % Seg Neutrophils # (1.8-7.7) K/mm3 Sodium (137-145) mmol/L Potassium (3.6-5.0) mmol/L Chloride (98-107) mmol/L Carbon Dioxide (22-30) mmol/L Anion Gap mmol/L BUN (7-17) mg/dL Creatinine (0.7-1.2) mg/dL Estimated GFR ml/min BUN/Creatinine Ratio % Glucose (65-100) mg/dL Calcium (8.4-10.2) mg/dL HCG, Qual (Negative) Urine Color Yellow (Yellow) Urine Turbidity Slightly-cloudy (Clear) Urine pH 7.0 (5.0-7.0) Ur Specific Noble 1.026 (1.003-1.030) Urine Protein <15 mg/dl (Negative) mg/dL Urine Glucose (UA) Neg (Negative) mg/dL Urine Ketones Neg (Negative) mg/dL Urine Blood Sm (Negative) Urine Nitrite Neg (Negative) Urine Bilirubin Neg (Negative) Urine Urobilinogen < 2.0 (<2.0) mg/dL Ur Leukocyte Esterase Neg (Negative) Urine WBC (Auto) 1.0 (0.0-6.0) /HPF Urine RBC (Auto) 6.0 (0.0-6.0) /HPF U Epithel Cells (Auto) 6.0 (0-13.0) /HPF Amorphous Crystals Few Urine Mucus 1+ /HPF Vital Signs 03/29/19 23:00 Temperature 98.1 F Pulse Rate 98 H Respiratory 16 Rate Blood Pressure 126/78 O2 Sat by Pulse 99 Oximetry - Radiology Data Radiology results: report reviewed, image reviewed Print Report Referring Physician: STEVEN WAGNER Patient Name: KENNY TAYLOR Date of : 1995 Sex: Female Report Date: 2019-03-30 Report Status: Finalized Findings [facility] [address] [id number] Ultrasound Report Signed Patient: KENNY TAYLOR MR#: [id number] : 1995 Acct:[id number] Age/Sex: 23 / F ADM Date: 03/29/19 Loc: ED Attending Dr: Ordering Physician: STEVEN WAGNER MD Date of Service: 03/30/19 Procedure(s): US transvaginal Accession Number(s): [id number] cc: STEVEN WAGNER MD PROCEDURE: US TRANSVAGINAL HISTORY: pelvic pain FINDINGS: Real-time ultrasound of the pelvis was performed by endovaginal technique. The uterus measures 9.5 x 4.5 x 6.2 cm. There is a fundal leiomyoma 1.5 cm and the uterine body leiomyoma 1.5 cm. The endometrial stripe measures 0.5 cm which is within normal limits. The right ovary measures 3.1 x 1.8 x 2.1 cm. There is no evidence of right ovarian torsion. The left ovary was not seen. IMPRESSION: Uterine leiomyomas Normal right ovary The left ovary was not seen This document is electronically signed by Sukh Melgoza MD., March 30 2019 03:21:22 AM ET Tr anscribed By: AZIZA Dictated By: SUKH MELGOZA MD Electronically Authenticated By: SUKH MELGOZA MD Signed Date/Time: 03/30/19 0323 Critical care attestation.: If time is entered above; I have spent that time in minutes in the direct care of this critically ill patient, excluding procedure time. ED Disposition Clinical Impression: Pelvic pain Disposition: DC-01 TO HOME OR SELFCARE Is pt being admited?: No Does the pt Need Aspirin: No Condition: Stable Instructions: Pelvic Inflammatory Disease (ED) Additional Instructions: Cultures were sent today, and results will be available in the next 3-5 days. Please have your housing case manager contact the medical records department to obtain culture results. Take the pain medications as needed/directed. Follow up with her housing case manager within the next 7-10 days. Return to the emergency room right away with new, worsening or different symptoms not present on the initial emergency room evaluation. Make certain to practice barrier protection when engaging in sexual activity. Prescriptions: Ibuprofen [Motrin] 600 mg PO Q8H PRN #30 tablet PRN Reason: Pain Acetaminophen [Non-Aspirin Extra Strength] 500 mg PO Q6HR PRN #30 tablet PRN Reason: Pain , Severe (7-10) Referrals: JESSICA STAFFORD MD [Staff Physician] - 3-5 Days
--- NOTE | 2019-03-30 03:23 | Ultrasound Report ---
PROCEDURE: US TRANSVAGINAL HISTORY: pelvic pain FINDINGS: Real-time ultrasound of the pelvis was performed by endovaginal technique. The uterus measu res 9.5 x 4.5 x 6.2 cm. There is a fundal leiomyoma 1.5 cm and the uterine body leiomyoma 1.5 cm. The endometrial stripe measures 0.5 cm which is within normal limits. The right ovary measures 3.1 x 1.8 x 2.1 cm. There is no evidence of right ovarian torsion. The left ovary was not seen. IMPRESSION: Uterine leiomyomas Normal right ovary The left ovary was not seen This document is electronically signed by Sukh Melgoza MD., March 30 2019 03:21:22 AM ET
--- NOTE | 2019-03-30 03:28 | Ultrasound Report ---
PROCEDURE: US PELVIS DUPLEX DOPPLER COMP HISTORY: pelvic pain FINDINGS: Real-time ultrasound of the pelvis was performed by endovaginal technique using grayscale a nd color Doppler images. The uterus measures 9.5 x 4.5 x 6.2 cm. There is a fundal leiomyoma, 1.5 cm in the uterine body leiomyoma 1.3 cm. The endometrial stripe measures 0.5 cm which is within normal l imits. The right ovary measures 3.1 x 1.8 x 2.1 cm. There is no evidence of right ovarian torsion. The left ovary was not seen. IMPRESSION: Uterine leiomyomas Normal right ovary The left ovary was not seen This document is electronically signed by Sukh Melgoza MD., March 30 2019 03:26:03 AM ET
[2019-03-30] MEDS ORDERED: XYLOCAINE 1% MPF 5 mL INFILTRATI ONE (03:29)
[2019-03-30] MEDS ORDERED: ROCEPHIN IM ONE (03:29)
[2019-03-30] MEDS ORDERED: VIBRAMYCIN PO ONE (03:30)
[2019-03-30 03:38] VITALS: BP 138/81
== END 2019-03-30 04:16 | disposition home or self-care (01) ==
LOC: ED 22:45
DX: R10.2 Pelvic and perineal pain (principal); R51 Headache; K21.0 Gastro-esophageal reflux disease with esophagitis; G43.909 Migraine, unspecified, not intractable, without status migrainosus; J45.909 Unspecified asthma, uncomplicated; Z98.51 Tubal ligation status; Z98.890 Other specified postprocedural states; Z79.899 Other long term (current) drug therapy; Z91.040 Latex allergy status; Z91.013 Allergy to seafood; Z91.048 Other nonmedicinal substance allergy status
CPT/HCPCS: 36415; 76830; 80048; 81001; 84703; 85025; 87210; 87591; 93975; 96372; 99284; J1885

== ENCOUNTER 2019-08-08 07:40 | Emergency (ER) | payer MEDICAID ==
[2019-08-08 08:07] VITALS: BP 130/82
[2019-08-08] MEDS ORDERED: IBUPROFEN 800 MG TAB PO ONE (09:35)
--- NOTE | 2019-08-08 09:40 | Emergency Department Report ---
- General Chief Complaint: Chest Pain Stated Complaint: CHEST PAIN/SORE THROAT/HEADACHE Time Seen by Provider: 08/08/19 09:34 Source: patient Mode of arrival: Ambulatory Limitations: No Limitations - History of Present Illness Initial Comments: 23-year-old -[place] female patient with history of asthma presents with complaints of cough and sore throat yesterday. She states history of recurrent strep and pneumonia. She denies any fever/chills or mucous production with her cough. She rates the sore throat as a 9/10 in severity. She denies any hemoptysis, wheezing, or shortness of breath. She states her chest hurts with coughing. MD Complaint: cough, sore throat -: Sudden Severity: severe Severity scale (0 -10): 9 Quality: aching Consistency: constant Associated Symptoms: nasal congestion. denies: fever, myalgias, diaphoresis, headache, stiff neck, shortness of breath, vomiting - Related Data Previous Rx's Medication Instructions Recorded Last Taken Type Acetaminophen [Non-Aspirin Extra 500 mg PO Q6HR PRN #30 tablet 03/30/19 Unknown Rx Strength] Ibuprofen [Motrin] 600 mg PO Q8H PRN #30 tablet 03/30/19 Unknown Rx Benzonatate 200 mg PO TID PRN #30 capsule 08/08/19 Unknown Rx Ibuprofen [Motrin 800 MG tab] 800 mg PO Q8HR PRN #21 tablet 08/08/19 Unknown Rx Allergies Allergy/AdvReac Type Severity Reaction Status Date / Time adhesive tape Allergy Rash Verified 11/05/18 17:34 latex Allergy Rash Verified 11/05/18 17:34 Latex, Natural Rubber AdvReac Itching Verified 11/05/18 17:34 shrimp AdvReac Rash Verified 11/14/18 08:59 ED Review of Systems ROS: Stated complaint: CHEST PAIN/SORE THROAT/HEADACHE Other details as noted in HPI Constitutional: denies: chills, fever ENT: throat pain Respiratory: cough. denies: orthopnea, shortness of breath, SOB with exertion, SOB at rest, wheezing Cardiovascular: denies: chest pain, palpitations, edema, syncope Gastrointestinal: denies: abdominal pain, nausea, vomiting Skin: denies: rash Neurological: denies: headache ED Past Medical Hx - Past Medical History Hx Hypertension: No Hx CVA: No Hx Heart Attack/AMI: No Hx Congestive Heart Failure: No Hx Diabetes: No Hx Deep Vein Thrombosis: No Hx Pulmonary Embolism: No Hx GERD: Yes Hx Liver Disease: No Hx Renal Disease: No Hx Sickle Cell Disease: No Hx Arthritis: No Hx Headaches / Migraines: Yes Hx Seizures: No Hx Kidney Stones: No Hx Psychiatric Treatment: No Hx Asthma: Yes (Not treated in "years") Hx COPD: No Hx Tuberculosis: No Hx Dementia: No Hx HIV: No Additional medical history: pneumonia - Surgical History Hx Coronary Stent: No Hx Open Heart Surgery: No Hx Pacemaker: No Hx Internal Defibrillator: No Hx Cholecystectomy: No Hx Appendectomy: No Hx Breast Surgery: No Additional Surgical History: OVARIAN CYST REMONAL, Tubal ligation 11/14/18 - Social History Smoking Status: Never Smoker Substance Use Type: None - Medications Home Medications: Home Medications Medication Instructions Recorded Confirmed Last Taken Type Acetaminophen [Non-Aspirin Extra 500 mg PO Q6HR PRN #30 tablet 03/30/19 Unknown Rx Strength] Ibuprofen [Motrin] 600 mg PO Q8H PRN #30 tablet 03/30/19 Unknown Rx Benzonatate 200 mg PO TID PRN #30 capsule 08/08/19 Unknown Rx Ibuprofen [Motrin 800 MG tab] 800 mg PO Q8HR PRN #21 tablet 08/08/19 Unknown Rx ED Physical Exam - General Limitations: No Limitations General appearance: alert, in no apparent distress - Head Head exam: Present: atraumatic, normocephalic - Eye Eye exam: Present: normal appearance - ENT ENT exam: Present: normal orophraynx, mucous membranes moist - Neck Neck exam: Present: normal inspection. Absent: tenderness, lymphadenopathy - Respiratory Respiratory exam: Present: normal lung sounds bilaterally. Absent: respiratory distress, wheezes, rales, rhonchi, stridor, chest wall tenderness, accessory muscle use, decreased breath sounds - Cardiovascular Cardiovascular Exam: Present: regular rate, normal rhythm. Absent: systolic murmur, diastolic murmur, rubs, gallop - GI/Abdominal GI/Abdominal exam: Present: soft. Absent: tenderness - Neurological Exam Neurological exam: Present: alert, oriented X3 - Psychiatric Psychiatric exam: Present: normal affect, normal mood - Skin Skin exam: Present: warm, dry, intact, normal color. Absent: rash ED Course Vital Signs 08/08/19 08/08/19 08:04 09:42 Temperature 98.8 F Pulse Rate 82 Respiratory 20 18 Rate Blood Pressure 130/82 O2 Sat by Pulse 98 Oximetry ED Medical Decision Making - Lab Data Lab Results 08/08/19 Range/Units Unknown Group A Strep Rapid Negative (Negative) - Radiology Data Radiology results: report reviewed CHEST 2 VIEWS INDICATION / CLINICAL INFORMATION: cough. Headache and shortness of breath COMPARISON: None available. FINDINGS: SUPPORT DEVICES: None. HEART / MEDIASTINUM: No significant abnormality. LUNGS / PLEURA: No significant pulmonary or pleural abnormality. No pneumothorax. ADDITIONAL FINDINGS: No significant additional findings. IMPRESSION: 1. No acute findings. - Medical Decision Making Patient here with cough and congestion and sore throat for the past day. Chest x-ray is WNL and strep is negative. Symptoms are likely due to a viral upper respiratory infection. Will treat symptomatically. Recommended follow-up with primary care within 3-5 days as needed. Strict return precautions were discussed in detail with patient who states understanding. Critical care attestation.: If time is entered above; I have spent that time in minutes in the direct care of this critically ill patient, excluding procedure time. ED Disposition Clinical Impression: URI with cough and congestion Disposition: DC-01 TO HOME OR SELFCARE Is pt being admited?: No Condition: Stable Instructions: Upper Respiratory Infection (ED) Prescriptions: Benzonatate 200 mg PO TID PRN #30 capsule PRN Reason: Cough Ibuprofen [Motrin 800 MG tab] 800 mg PO Q8HR PRN #21 tablet PRN Reason: Pain , Severe (7-10) Referrals: PRIMARY CARE, [Primary Care Provider] - 3-5 Days
--- NOTE | 2019-08-08 11:06 | XRay Report ---
CHEST 2 VIEWS INDICATION / CLINICAL INFORMATION: cough. Headache and shortness of breath COMPARISON: None available. FINDINGS: SUPPORT DEVICES: None. HEART / MEDIASTINUM: No significant abnormality. LUNGS / PLEURA: No significant pulmonary or pleural abnormality. No pneumothorax. ADDITIONAL FINDINGS: No significant additional findings. IMPRESSION: 1. No acute findings. Signer Name: Rafat Castañeda MD Signed: 08/08/2019 11:02 AM Workstation Name: [id number]
== END 2019-08-08 11:52 | disposition home or self-care (01) ==
LOC: ED 07:40
DX: J06.9 Acute upper respiratory infection, unspecified (principal); Z98.51 Tubal ligation status; J45.909 Unspecified asthma, uncomplicated; Z91.048 Other nonmedicinal substance allergy status; Z91.040 Latex allergy status; Z91.013 Allergy to seafood; Z79.899 Other long term (current) drug therapy
CPT/HCPCS: 71046; 87116; 87430

== ENCOUNTER 2019-09-07 08:08 | Emergency (ER) | payer MEDICAID ==
--- NOTE | 2019-09-07 10:11 | Emergency Department Report ---
ED General Adult HPI - General Chief complaint: Upper Respiratory Infection Stated complaint: CHEST PAIN/SORE THROAT Time Seen by Provider: 09/07/19 09:55 Source: patient Mode of arrival: Ambulatory Limitations: No Limitations - History of Present Illness Initial comments: This is a 23-year-old female who comes in again as she did in August with equivalent symptoms. She states that her chest hurts when she coughs. Cough is nonproductive and she has a hoarse voice. She states that this is related to the fact that she works outside and that it is cold. -: Gradual, days(s) Location: chest Radiation: non-radiation Quality: other (sore on cough only) Consistency: intermittent, now resolved Improves with: none Worsens with: none Associated Symptoms: denies other symptoms Treatments Prior to Arrival: none - Related Data Previous Rx's Medication Instructions Recorded Last Taken Type Acetaminophen [Non-Aspirin Extra 500 mg PO Q6HR PRN #30 tablet 03/30/19 Unknown Rx Strength] Ibuprofen [Motrin] 600 mg PO Q8H PRN #30 tablet 03/30/19 Unknown Rx Ibuprofen [Motrin 800 MG tab] 800 mg PO Q8HR PRN #21 tablet 08/08/19 Unknown Rx Azithromycin [Zithromax Z-RUSTY] 250 mg PO DAILY #1 pack 09/07/19 Unknown Rx Benzonatate 200 mg PO HS #10 capsule 09/07/19 Unknown Rx Allergies Allergy/AdvReac Type Severity Reaction Status Date / Time adhesive tape Allergy Rash Verified 11/05/18 17:34 latex Allergy Rash Verified 11/05/18 17:34 Latex, Natural Rubber AdvReac Itching Verified 11/05/18 17:34 shrimp AdvReac Rash Verified 11/14/18 08:59 ED Review of Systems ROS: Stated complaint: CHEST PAIN/SORE THROAT Other details as noted in HPI Constitutional: denies: chills, fever Eyes: denies: eye pain, eye discharge, vision change ENT: other (hoarse voice). denies: ear pain, throat pain Respiratory: cough. denies: shortness of breath, wheezing Cardiovascular: denies: chest pain, palpitations Endocrine: no symptoms reported Gastrointestinal: denies: abdominal pain, nausea, diarrhea Genitourinary: denies: urgency, dysuria, discharge Musculoskeletal: denies: back pain, joint swelling, arthralgia Skin: denies: rash, lesions Neurological: denies: headache, weakness, paresthesias Psychiatric: denies: anxiety, depression Hematological/Lymphatic: denies: easy bleeding, easy bruising ED Past Medical Hx - Past Medical History Previous Medical History?: Yes Hx Hypertension: No Hx CVA: No Hx Heart Attack/AMI: No Hx Congestive Heart Failure: No Hx Diabetes: No Hx Deep Vein Thrombosis: No Hx Pulmonary Embolism: No Hx GERD: Yes Hx Liver Disease: No Hx Renal Disease: No Hx Sickle Cell Disease: No Hx Arthritis: No Hx Headaches / Migraines: Yes Hx Seizures: No Hx Kidney Stones: No Hx Psychiatric Treatment: No Hx Asthma: Yes (Not treated in "years") Hx COPD: No Hx Tuberculosis: No Hx Dementia: No Hx HIV: No Additional medical history: pneumonia - Surgical History Past Surgical History?: Yes Hx Coronary Stent: No Hx Open Heart Surgery: No Hx Pacemaker: No Hx Internal Defibrillator: No Hx Cholecystectomy: No Hx Appendectomy: No Hx Breast Surgery: No Additional Surgical History: OVARIAN CYST REMOvAL, Tubal ligation 11/14/18 - Social History Smoking Status: Never Smoker Substance Use Type: None - Medications Home Medications: Home Medications Medication Instructions Recorded Confirmed Last Taken Type Acetaminophen [Non-Aspirin Extra 500 mg PO Q6HR PRN #30 tablet 03/30/19 Unknown Rx Strength] Ibuprofen [Motrin] 600 mg PO Q8H PRN #30 tablet 03/30/19 Unknown Rx Ibuprofen [Motrin 800 MG tab] 800 mg PO Q8HR PRN #21 tablet 08/08/19 Unknown Rx Azithromycin [Zithromax Z-RUSTY] 250 mg PO DAILY #1 pack 09/07/19 Unknown Rx Benzonatate 200 mg PO HS #10 capsule 09/07/19 Unknown Rx ED Physical Exam - General Limitations: No Limitations General appearance: alert, in no apparent distress - Head Head exam: Present: atraumatic, normocephalic - Eye Eye exam: Present: normal appearance. Absent: scleral icterus - ENT ENT exam: Present: normal orophraynx, mucous membranes moist - Neck Neck exam: Present: normal inspection. Absent: tenderness, meningismus - Respiratory Respiratory exam: Present: normal lung sounds bilaterally. Absent: respiratory distress - Cardiovascular Cardiovascular Exam: Present: regular rate, normal rhythm. Absent: systolic murmur, diastolic murmur, rubs, gallop - GI/Abdominal GI/Abdominal exam: Present: soft, normal bowel sounds. Absent: distended, tenderness, guarding, rebound, rigid - Extremities Exam Extremities exam: Present: normal inspection - Back Exam Back exam: Present: normal inspection - Neurological Exam Neurological exam: Present: alert, oriented X3, CN II-XII intact. Absent: motor sensory deficit - Psychiatric Psychiatric exam: Present: normal affect, normal mood - Skin Skin exam: Present: warm, dry, intact, normal color. Absent: rash ED Course Vital Signs 09/07/19 08:12 Temperature 98.8 F Pulse Rate 85 Respiratory 20 Rate Blood Pressure 119/74 O2 Sat by Pulse 99 Oximetry Critical care attestation.: If time is entered above; I have spent that time in minutes in the direct care of this critically ill patient, excluding procedure time. ED Disposition Clinical Impression: Upper respiratory infection Qualifiers: URI type: unspecified URI Qualified Code(s): J06.9 - Acute upper respiratory infection, unspecified Disposition: DC- TO HOME OR SELFCARE Is pt being admited?: No Does the pt Need Aspirin: No Condition: Stable Instructions: Upper Respiratory Infection (ED) Additional Instructions: Rx directed. Follow-up in the primary care setting. Return any acute change or worsening symptoms. Prescriptions: Benzonatate 200 mg PO HS #10 capsule Azithromycin [Zithromax Z-RUSTY] 250 mg PO DAILY #1 pack Referrals: [facility] [Provider Group] - 3-5 Days Time of Disposition: 10:11
[2019-09-07 10:58] VITALS: BP 120/78
== END 2019-09-07 10:20 | disposition home or self-care (01) ==
LOC: ED 08:08
DX: J06.9 Acute upper respiratory infection, unspecified (principal)
CPT/HCPCS: 99282

== ENCOUNTER 2022-02-12 16:11 | Emergency (ER) | payer MEDICAID | END 2022-02-12 19:20 | disposition left against medical advice (07) | LOC: ED 16:11 | DX: J11.1 Influenza due to unidentified influenza virus with other respiratory manifestations (principal); Z53.21 Procedure and treatment not carried out due to patient leaving prior to being seen by health care provider ==